=== PATIENT | female | born 1990 | race Caucasian/White ===

== ENCOUNTER 2017-04-18 11:58 | Emergency (ER) | payer SELFPAY ==
[~2017-04-18] VITALS: Ht 154.9 cm; Wt 53.8 kg
[2017-04-18 13:45] LABS: BASOPHIL % 0.4 % (0-2); PLATELET COUNT 270 x10^3mcL (130-400); RED CELL DISTRIBUTION WIDTH 12.6 % (11.5-14.5)
[2017-04-18 14:51] VITALS: BP 121/62
== END 2017-04-18 14:51 | disposition home or self-care (01) ==
LOC: ED 11:58
PROVIDERS: Emergency Medicine
DX: O20.0 Threatened abortion (principal); Z3A.01 Less than 8 weeks gestation of pregnancy; Z88.0 Allergy status to penicillin; Z98.890 Other specified postprocedural states
CPT/HCPCS: 36415

== ENCOUNTER 2017-04-20 12:02 | Emergency (ER) | payer SELFPAY ==
[~2017-04-20] VITALS: Ht 154.9 cm; Wt 53.5 kg
[2017-04-20 12:18] VITALS: BP 111/68
== END 2017-04-20 14:31 | disposition home or self-care (01) ==
LOC: ED 12:02
DX: O20.0 Threatened abortion (principal); Z3A.00 Weeks of gestation of pregnancy not specified; Z88.0 Allergy status to penicillin

== ENCOUNTER 2017-04-22 10:57 | Emergency (ER) | payer SELFPAY ==
[2017-04-22 14:13] VITALS: BP 136/74
== END 2017-04-22 14:13 | disposition home or self-care (01) ==
LOC: ED 10:57
DX: O03.9 Complete or unspecified spontaneous abortion without complication (principal); Z88.0 Allergy status to penicillin